=== PATIENT | female | born 1985 | race Caucasian/White ===

== ENCOUNTER 2024-02-01 07:22 | Emergency (ER) | payer BC, SELFPAY ==
[2024-02-01 07:26] VITALS: BP 155/100
--- NOTE | 2024-02-01 07:57 | ED.GENMED ---
History of Present Illness
General
Chief Complaint: Abdominal Pain
Time Seen by Provider: 02/01/24 07:56
Travel History
Have you had any contact with someone who has COVID-19?: No
Do you have any symptoms of coronavirus? Fever > 100 degrees, chills, cough, shortness of breath, sore throat, loss of taste or smell, muscle aches, or headache?: No
History of Present Illness
History of Present Illness:
HPI: 2 nights ago, the patient states that she had an issue with anxiety and commonly has some associated abdominal cramping with it. However she developed some sensation of discomfort in the right lower quadrant and then she developed vaginal
bleeding which is rather dark and heavy. She is not due for her period next week. She normally has normal periods. She denies chance of .
EXAM:
GENERAL: Well appearing in very mild distress
HEENT: Moist oral mucosa
CARDIOVASCULAR: No murmurs, normal heart rate and rhythm, No chest wall tenderness
PULMONARY: No respiratory distress, breath sounds are clear and equal
ABDOMEN: Soft with no peritoneal signs, no tenderness and specifically there is no significant tenderness in the right lower quadrant
NEUROLOGIC: Excellent strength all extremities, no coordination deficits
PSYCHIATRIC: Appropriate mental status, normal insight and judgement
EXTREMITIES: Nontender, no edema, moves all extremities equally
SKIN: No rash, no lesions
TIME OF INITIAL ENCOUNTER: 8 AM
NUMBER AND COMPLEXITY OF PROBLEMS ADDRESSED AT THE ENCOUNTER
� Chronic conditions affecting care: Migraines and asthma, anxiety
� Acute Exacerbation and/or Progression of Chronic Illness: This is an acute problem
� Differential Diagnosis includes: Ectopic , anxiety related abdominal pain/IBS, ovarian cyst/torsion
AMOUNT AND/OR COMPLEXITY OF DATA TO BE REVIEWED AND ANALYZED
� I performed an independent evaluation of and my interpretation is:
EKG:
CT:
X-rays:
Laboratory Studies: White count, hemoglobin, chemistries are normal, hCG negative
Other: I personally viewed imaging of ultrasound of the pelvis and agree with radiologist that there is no acute abnormality
� Review of other/old records: No old records available for review in [facility]
� Clinical information was obtained by an independent historian: I spoke to at bedside
� Prescriptions/Medications Considered but not given:
� Further testing considered but not performed:
RISK OF COMPLICATIONS AND/OR MORBIDITY OR MORTALITY OF PATIENT MANAGEMENT
� Social determinants of health affecting care: Lives at home
� Discussion with other providers:
� Escalation of care including admission/observation vs risk of discharge considered: The patient declines analgesia. However after ultrasound pain worsened therefore Toradol was given. I informed patient of the results at
11:28 AM and she appears fairly comfortable. She does not have a reception manager�I am given you the contact information for a local reception manager. The cause of her symptoms is unclear. Doubt appendicitis given the normal white count with no
significant abdominal tenderness on exam and associated vaginal bleeding.
Phy Exam
Physical Exam
Physical Exam:
See HPI
Course
Orders/Labs/Results
Orders:
Orders
02/01/24 08:11
0.9% Sodium Chloride 1000 ml [Nss] 1,000 ml IV BOLUS
Test Result ONCE
02/01/24 08:12
US Pelvis W Transvag Combined Urgent
Reason For Exam: Vaginal bleeding with right-sided pain
02/01/24 08:41
Complete Blood Count/With Diff Urgent
Comprehensive Metabolic Panel Urgent
HCG, Serum Qualitative Screen Urgent
02/01/24 10:55
Ketorolac [Toradol] 15 mg IV NOW STA
Abnormal Lab Results
02/01/24
08:41
MCV 80.9 L fL
(81.0-99.0)
02/01/24 08:41
02/01/24 08:41
Vital Signs
Initial and Last Documented VS:
Initial Vital Signs
Temp Pulse Resp BP Pulse Ox
98.3 F 84 18 155/100 98
02/01/24 07:26 02/01/24 07:26 02/01/24 07:26 02/01/24 07:26 02/01/24 07:26
Last Documented Vital Signs
Temp Pulse Resp BP Pulse Ox
98.3 F 84 16 155/100 98
02/01/24 07:26 02/01/24 07:26 02/01/24 11:04 02/01/24 07:26 02/01/24 07:26
*Critical Care Note
Total Time (30-74mins, 75-104mins- exclusive of procedures): Not Applicable
ED Attending Note
-
Portions of this chart may have been created with voice recognition software.� Occasional wrong word or��sound alike� substitutions may have occurred due to the inherent limitations of voice recognition software.
Discharge Plan
Departure
Referrals:
NONE,* [Family Provider] -
Interventions
Interventions:
*Risk Screen - Suicide Last Done: 02/01/24 07:26
*Neglect/Abuse Screening Last Done: 02/01/24 07:26
ED- Fall Risk Assessment Last Done: 02/01/24 08:49
*ED COVID-19 Vaccine History Last Done: 02/01/24 07:26
RW-Zamfym-Bvbtgsmkpk Assessment Last Done: 02/01/24 08:49
[2024-02-01] MEDS: NSS 1000 IV (08:39)
[2024-02-01 08:58] LABS: % Basophils 0.3 % (0-2); % Eosinophils 2.7 % (0-6); % Immature Granulocytes 0.2 % (0-0.5); % Lymphocytes 41.8 % (20.5-51.1); % Monocytes 6.2 % (1.7-9.3); % Neutrophils 48.8 % (42.2-75.2); Absolute Eosinophils 0.2 10^3/uL (0-0.7); Absolute Lymphocytes 2.5 10^3/uL (1.2-3.4); Absolute Monocytes 0.4 10^3/uL (0.1-0.6); Absolute Neutrophils 2.9 10^3/uL (1.4-6.5); Hematocrit 37.8 % (37.0-47.0); Mean Corp Hgb Conc. 34.4 g/dL (33.0-37.0); Mean Corpuscular Hgb 27.8 pg (27.0-31.0); Mean Corpuscular Volume 80.9 fL (81.0-99.0); Mean Platelet Volume 9.9 fL (7.4-10.4); Nucleated Red Blood Cells % 0 %; Platelet Count 321 10^3/uL (130-400); Red Blood Cell Count 4.67 10^6/uL (4.20-5.40); Red Cell Dist. Width 12.4 % (11.5-14.5)
[2024-02-01 09:02] LABS: HCG, Serum Qualitative Screen Negative
[2024-02-01 09:07] LABS: ALT (SGPT) 13 U/L (0-35); AST (SGOT) 17 U/L (14-36); Alkaline Phosphatase 69 U/L (38-126); Blood Urea Nitrogen 11 mg/dl (7-17); Calcium 8.7 mg/dl (8.4-10.2); Carbon Dioxide 24 mmol/L (22-30); Chloride 107 mmol/L (98-107); Glucose 91 mg/dl (70-99); Sodium 135 mmol/L (135-145); Total Bilirubin 0.6 mg/dl (0.2-1.3); Total Protein 6.3 g/dl (6.3-8.2); eGFR > 60.00
[2024-02-01] MEDS: TORADOL 15 MG IV (11:01)
[2024-02-01 12:09] VITALS: BP 125/88
== END 2024-02-01 12:10 | disposition home or self-care (01) ==
LOC: EMR 07:22
PROVIDERS: EMERGENCY PHYSICIAN Emergency Medicine
DX: N93.8 Other specified abnormal uterine and vaginal bleeding (principal)
CPT/HCPCS: 99284; 96374; 96361 ×2; 76830; 76856; 80053; 84703; 85025